=== PATIENT | male | born 1980 | race Hispanic/Latino ===

== ENCOUNTER 2022-12-07 18:09 | Emergency (ER) | payer OTHER ==
[~2022-12-07] VITALS: Ht 154.9 cm; Wt 82.0 kg
[2022-12-07 18:29] VITALS: BP 159/111
[2022-12-07 19:15] VITALS: BP 130/103
[2022-12-07] MEDS ORDERED: PERCOCET 5/325M1 TAB PO (19:48)
[2022-12-07] MEDS ORDERED: NAPROXEN500 MG PO (19:48)
[2022-12-07 20:30] VITALS: BP 130/103
== END 2022-12-07 20:31 | disposition home or self-care (01) | DRG 563 ==
LOC: ED 18:09
DX: S42.021A Displaced fracture of shaft of right clavicle, initial encounter for closed fracture (principal); S00.31XA Abrasion of nose, initial encounter; S60.417A Abrasion of left little finger, initial encounter; W11.XXXA Fall on and from ladder, initial encounter